=== PATIENT | male | born 1965 | race Caucasian/White ===

== ENCOUNTER → 2016-07-29 | Outpatient (CLI) | payer BC | END | disposition home or self-care (01) | LOC: M WUC 08:05 | PROVIDERS: ATTEND Family Medicine | DX: E78.2 Mixed hyperlipidemia (principal) ==

== ENCOUNTER → 2017-08-20 | Outpatient (REF) | payer BC | LOC: M LAB REF 12:51 | DX: J11.1 Influenza due to unidentified influenza virus with other respiratory manifestations (principal) | CPT/HCPCS: 87633 ==

== ENCOUNTER → 2020-09-22 | Outpatient (REF) | payer BC | LOC: M LAB REF 19:21 | PROVIDERS: ATTEND Physician Assistant Medical | DX: Z20.822 Contact with and (suspected) exposure to COVID-19 (principal) ==